=== PATIENT | male | born 1950 | race Two or more races ===

== ENCOUNTER 2024-08-11 10:12 | Emergency (ER) | payer MEDICARE ==
[~2024-08-11] VITALS: Ht 170.2 cm; Wt 90.9 kg
[2024-08-11 10:20] VITALS: BP 152/63; PULSE 84; RESP 16; TEMP 98.6; O2SAT 99
[2024-08-11] MEDS ORDERED: FINE10TA PO (10:21)
[2024-08-11] MEDS ORDERED: PIOG30TA10 PO (10:21)
[2024-08-11] MEDS ORDERED: VALS160T2 PO (10:21)
[2024-08-11] MEDS ORDERED: METF-1211 PO (10:21)
[2024-08-11] MEDS ORDERED: LEVO150 PO (10:21)
[2024-08-11] MEDS ORDERED: ATOR40TA28 PO (10:21)
[2024-08-11] MEDS ORDERED: LIDO700A15 TP (11:05)
[2024-08-11] MEDS ORDERED: ACET-3385 PO (11:05)
[2024-08-11] MEDS: ACETAMINOPHEN 500 MG TABLET PO ONE (11:14)
[2024-08-11] MEDS: KETOROLAC TROMETHAMINE 30 MG/ML VIAL IM ONE (11:15)
[2024-08-11] MEDS: LIDOCAINE 5% TRANSDERMAL PATCH TD ONE (11:15)
== END 2024-08-11 11:28 | disposition home or self-care (01) ==
LOC: EMS 10:12
DX: S39.012A Strain of muscle, fascia and tendon of lower back, initial encounter (principal); E11.9 Type 2 diabetes mellitus without complications; E78.00 Pure hypercholesterolemia, unspecified; I10 Essential (primary) hypertension; E03.9 Hypothyroidism, unspecified; X58.XXXA Exposure to other specified factors, initial encounter; Y93.89 Activity, other specified; Y92.89 Other specified places as the place of occurrence of the external cause; Y99.8 Other external cause status
CPT/HCPCS: 99283; 82962; 96372; J1885